=== PATIENT | male | born 1965 | race Caucasian/White ===

== ENCOUNTER → 2017-07-02 | Day surgery (SDC) | payer OTHER ==
[~2017-07-02] MED LIST: BUPIVACAINE HCL PF 0.75% 30 ML VIAL ONE; LACTATED RINGER'S 1000 ML INJ 1,000 ML ONE; LIDOCAINE 2%/EPINEPHrine PF 1:200,000 20ML SDV ONE; MIDAZOLAM HCL 5 MG/ML VIAL (1 ML) ONE; PROPOFOL 500 MG/50 ML BTL IV ONE; ceFAZolin INJ 1,000 MG VIAL ONE
--- NOTE | 2017-07-02 13:48 | MP ---
cc: Otf Zacarias MD DATE OF OPERATION: 07/02/2017 PREOPERATIVE DIAGNOSIS: Right lateral malleolus fracture. POSTOPERATIVE DIAGNOSIS: Right lateral malleolus fracture. PROCEDURE PERFORMED: Open reduction and internal fixation, right lateral malleolus fracture. SURGEON: Otf Zacarias MD [employer] SALES AGENT: LEA Huitron ANESTHESIA: General with regional nerve block. ESTIMATED BLOOD LOSS: Less than 50 mL TOURNIQUET TIME: Zero minutes. COMPLICATIONS: None. IMPLANTS USED: Arthrex. INDICATIONS: The patient is a 52-year-old male who sustained traumatic injury to the right ankle resulting in a displaced lateral malleolus fracture with displacement, shortening and medial clear space widening. He did have disruption of the ankle mortise. The patient was evaluated by us in [facility]. X-rays confirmed the above findings. The patient was counseled on risks, benefits, alternatives to the above named proposed surgical procedure. He did wish to proceed with surgery. DETAILS OF PROCEDURE: Written consent was obtained. The patient was identified by name. A regional nerve block was administered to the right lower extremity by the anesthesiologist. The patient was taken to the operating room, general anesthesia was administered as well as 2 grams of IV Ancef. Right lower extremity was prepped and draped using Isuprel alcohol, Hibiclens solution and ChloraPrep solution. After timeout was performed, a longitudinal incision was made over the lateral aspect of the right ankle. The fascial layer was incised with the periosteum elevated over the distal fibula and open reduction was performed with a fracture reduction tenaculum and longitudinal traction applied. Subsequently, an Arthrex 2.7 mm lag screw was initially placed transversing the fracture and subsequently an Arthrex stainless steel 5-hole distal fibular locking plate was applied to the lateral aspect of the distal fibula. A combination of both locking and nonlocking screws were used for fixation. Fluoroscopic imaging confirmed hardware placement and fracture reduction. The surgical wound was thoroughly irrigated with sterile saline solution. The fascial layer was closed with 0 Vicryl suture, subcutaneous layer with subcutaneous layer of 3-0 Vicryl suture and skin incision closed with Dermabond. Sterile dressing was applied. The patient tolerated the procedure well with no intraoperative complications noted. Braden Hoffmann PA-C was present during the entire procedure to include patient positioning and the procedure itself. The medical necessity of physician diver assistant was indicated in this case due to the complexity of the procedure. He assisted with both achieving and maintaining open reduction along with implantation of the internal fixation device. MD DARIAN Samayoa/MAXIME , 01:26 PM , 01:48 PM
== END | disposition home or self-care (01) ==
LOC: ESDC 11:00
PROVIDERS: ATTEND Orthopaedic Surgery Sports Medicine
DX: S82.61XA Displaced fracture of lateral malleolus of right fibula, initial encounter for closed fracture (principal)
CPT/HCPCS: 01480; 27792; 64450; 73600; 76000; C1713; J0690; J2250; J7120